=== PATIENT | male | born 1980 | race African-American/Black ===

== ENCOUNTER 2017-07-10 20:04 | Emergency (ER) | payer SELFPAY | END 2017-07-10 20:51 | disposition left against medical advice (07) | LOC: ERS 20:04 | DX: Z53.21 Procedure and treatment not carried out due to patient leaving prior to being seen by health care provider (principal) ==

== ENCOUNTER 2018-08-24 21:58 | Emergency (ER) | payer SELFPAY ==
[2018-08-24] MEDS ORDERED: Acetaminophen 500 MG TAB ONE (22:27)
[2018-08-24] MEDS ORDERED: Ketorolac Tromethamine 30 MG/ML VIAL ONE (22:27)
== END 2018-08-24 22:56 | disposition home or self-care (01) ==
LOC: ERS 21:58
DX: J01.90 Acute sinusitis, unspecified (principal); F17.210 Nicotine dependence, cigarettes, uncomplicated
CPT/HCPCS: 87804; 96372; J1885

== ENCOUNTER 2018-11-29 12:35 | Emergency (ER) | payer SELFPAY ==
[2018-11-29] MEDS ORDERED: Ibuprofen 800 MG TAB ONE (13:11)
[2018-11-29] MEDS ORDERED: Acetaminophen/Codeine 30-300mg Tablet ONE (13:11)
== END 2018-11-29 13:15 | disposition home or self-care (01) ==
LOC: ERS 12:35
DX: K08.89 Other specified disorders of teeth and supporting structures (principal); F41.9 Anxiety disorder, unspecified; F32.9 Major depressive disorder, single episode, unspecified; F17.210 Nicotine dependence, cigarettes, uncomplicated
CPT/HCPCS: 99283